=== PATIENT | female | born 1995 | race Caucasian/White ===

== ENCOUNTER 2021-07-30 15:03 | Emergency (ER) | payer OTHER, SELFPAY ==
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
[2021-07-30 15:40] VITALS: BP 115/72; PULSE 66; RESP 16; TEMP 36.5; O2SAT 100
== END 2021-07-30 15:45 | disposition home or self-care (01) ==
PROVIDERS: Emergency Provider Nurse Practitioner Family; PCP Physician Assistant
DX: S16.1XXA Strain of muscle, fascia and tendon at neck level, initial encounter (principal); V43.52XA Car driver injured in collision with other type car in traffic accident, initial encounter
CPT/HCPCS: 99203; G0463